=== PATIENT | female | born 1980 | race Caucasian/White ===

== ENCOUNTER 2018-03-25 13:00 | Emergency (ER) | payer OTHER, SELFPAY ==
[2018-03-25 13:08] VITALS: BP 132/71; PULSE 70; RESP 18; TEMP 36.4; O2SAT 100
--- NOTE | 2018-03-25 13:41 | ED.DENTAL ---
HPI - Dental/Oral General Chief complaint: Dental/Oral Stated complaint: lung pain x2 days Time Seen by Provider: 03/25/18 13:38 Source: patient Mode of arrival: ambulatory Limitations: no limitations History of Present Illness HPI Narrative: Patient is a 37-year-old female here for evaluation of multiple complaints. She states that at the end of last week she was scheduled for a lithotripsy. She states that she was told during that procedure that she ?aspirated ?it appears that she had an LMA placed. She states that the procedure was not completed because of this ?aspiration. She states since then she has had a cough. Also has had chest pain with coughing. No fevers. She also has complaints of a tender right submandibular area. She states she does feel like there is a lump there. This has been gradually worsening over the past couple days. Again no fevers. Does have somewhat of a sore throat. No ear pain. She states she has had a ?tumor ?in this area in the past. And she was concerned about this lump. Related Data Home Medications Medication Instructions Recorded Confirmed ranitidine HCl 75 mg PO BID #0 08/26/16 Previous Rx's Medication Instructions Recorded prednisone 20 mg PO QDAY 28 Days #0 tab 08/26/16 Allergies Allergy/AdvReac Type Severity Reaction Status Date / Time Cephalosporins Allergy Severe RASH Verified 03/25/18 14:04 [CEPHALOSPORINS] Penicillins [PENICILLINS] Allergy Severe RASH Verified 03/25/18 14:04 Review of Systems Constitutional Denies fever(s) and Denies headache(s) ENT Ears, Nose, Mouth, and Throat: Denies change in voice, Denies vertigo, Denies dizziness, Denies dry mouth, Denies ear discharge, Denies headache(s), Denies mouth lesions, Denies mouth pain, Reports neck mass, Reports neck pain, Denies sinus pain, Denies sinus pressure, Reports sore throat and Denies throat swelling Cardiovascular Denies chest pain, Denies dyspnea and Denies dyspnea on exertion Respiratory Reports cough, Denies hemoptysis, Denies dyspnea, Denies dyspnea on exertion and Denies wheezing Gastrointestinal Gastrointestinal: Denies abdominal pain, Denies nausea and Denies vomiting Musculoskeletal Denies myalgias, Denies arthralgias and Reports neck pain Integumentary/Breasts Denies lesions and Denies rash Neurologic Denies vertigo, Denies dizziness and Denies headache(s) Hematologic/Lymphatic Comments: Not on anticoagulation Allergic/Immunologic Denies throat swelling and Denies wheezing PFSH Medical History Kidney stones (Acute) Thyroid nodule (Acute) Social History Smoking Status: Never smoker Exam Initial Vital Signs Initial Vital Signs: Vital Signs Temperature 97.6 F 03/25/18 13:08 Pulse Rate 70 03/25/18 13:08 Respiratory Rate 18 03/25/18 13:08 Blood Pressure 132/71 03/25/18 13:08 Pulse Oximetry 100 03/25/18 13:08 Const General: cooperative, healthy appearing, comfortable, well developed, well groomed and No acute distress Orientation: alert and oriented x3 HENMT Head: normal to inspection and normocephalic Ears: TM's normal bilaterally Nose: external nose normal Face and sinus: normal facial exam Mouth: oral mucosae normal, tongue normal and moist mucous membranes Teeth and gingiva: dentition normal Throat: posterior oropharynx normal and uvula midline Neck Thyroid: nontender Lymphatic: lymphadenopathy (Saw Saundra one-sided 1.5-2 cm tender freely movable submandibular lymph node.) Resp Effort & Inspection: normal respiratory effort, no cough, no grunting, not labored, no stridor and not tachypneic Auscultation: clear to auscultation bilaterally Cardio Rate: regular rate Rhythm: regular rhythm Skin Lesions: no lesions Rashes: no rashes Neuro General: alert, awake and oriented x3 Extrem General: normal to inspection and capillary refill normal Psych Appearance: grossly normal and well kempt Course Orders Ordered: ED Orders 03/25/18 13:52 CT soft tissue neck w con Stat 03/25/18 13:53 XR chest 1V Stat 03/25/18 14:20 Urine Culture Stat Urine Microscopic Stat 03/25/18 14:26 Basic Metabolic Panel Stat Complete Blood Count AUTO DIFF Stat Discontinued Medications Sodium Chloride (Normal Saline 0.9%) 1,000 mls @ 1,000 mls/hr IV BOLUS ONE Stop: 03/25/18 14:50 Last Infusion: 03/25/18 15:15 Dose: 0 mls/hr Admin: 03/25/18 14:15 Dose: 1,000 mls/hr Vital Signs - 8 hr 03/25/18 13:08 03/25/18 14:43 03/25/18 16:09 Temperature 97.6 F 98.0 F Pulse Rate 70 61 64 Respiratory Rate 18 16 16 Blood Pressure 132/71 Blood Pressure [Left Arm] 123/81 124/77 Pulse Oximetry [address] [facility] - Dental/Oral Lab Data Attestation: I reviewed the patient's lab results. Result diagrams: 03/25/18 14:26 03/25/18 14:26 Lab Results 03/25/18 03/25/18 03/25/18 Range/Units 14:20 14:26 14:26 WBC 9.3 (4.5-11.0) X10^3/uL RBC 4.68 (4.0-5.2) X10^6/uL Hgb 12.6 (12.0-16.0) g/dL Hct 38.2 (36-46) % MCV 81.5 (80-100) fL MCH 26.9 (26-34) PG MCHC 33.0 (30-36) % RDW 15.2 H (11.6-14.8) % Plt Count 296 (150-400) X10^3/uL Neut % (Auto) 70.4 (50-75) % Lymph % (Auto) 19.3 L (25-40) % O'Brien % (Auto) 5.5 (3-14) % Eos % (Auto) 4.3 H (2-4) % Baso % (Auto) 0.5 (0-2) % Neut # (Auto) 6500 (5312-2404) /uL Sodium 141 (137-145) mmol/L Potassium 3.9 (3.4-5.1) mmol/L Chloride 102 (98-107) mmol/L Carbon Dioxide 28 (22-32) mmol/L BUN 11 (7-17) mg/dL Creatinine 0.70 (0.52-1.04) mg/dL Estimated GFR > 60.0 (>60) mL/min BUN/Creatinine Ratio 15.7 (6-22) Glucose 88 (70-100) mg/dL Calcium 9.3 (8.4-10.2) mg/dL Urine RBC None seen (0-5/HPF) Urine WBC 5-10/hpf H (0-5/HPF) Urine Bacteria None seen (None) Ur Culture Indicated? Specimen cultured Micro UA Comment Not Reportable Point of Care Testing Test Results Negative Urine Dip Bedside Urine Glucose Negative Bedside Urine Bilirubin - Negative Bedside Urine Ketone - Negative Urine Specific [place] 1.005 Bedside Urine Occult Blood ++ Bedside Urine pH 6.5 Bedside Urine Protein - Negative Bedside Urine Urobilinogen - Negative Bedside Urine Nitrite - Negative Bedside Urine Leukocytes - Negative Esterase Imaging Data CT soft tissue neck: Radiologist's impression: PROCEDURE: CT SOFT TISSUE NECK W CON INDICATIONS: Right submandbular swelling with hx of tumor TECHNIQUE: After the administration of intravenous contrast, 3.0 mm axial sections acquired from the sella to the aortic arch. Additional oblique axial 3.0 mm sections acquired through the pharynx. 3 mm thick coronal and sagittal reformats were generated. For radiation dose reduction, the following was used: automated exposure control. COMPARISON: None. FINDINGS: Image quality: Excellent. Lymph nodes: No enlarged lymph nodes seen throughout the neck. Vessels: Visualized vasculature appears patent. Neck spaces: The oropharynx, nasopharynx, and pharynx demonstrate no mucosal lesions. The vocal cords, false vocal cords, pyriform sinuses, epiglottis, vallecula, and tongue base all appear normal. Extramucosal spaces appear unremarkable. Glands: The parotid and submandibular glands appear normal. Thyroid gland is enlarged and heterogeneous in its enhancement bilaterally, with a pattern suggestive of multiple thyroid benign nodules. The adjacent soft tissues show no hyperemia or inflammation. No impingement on the upper tracheal airway is present.. Miscellaneous: Visualized brain and orbits appear normal. Lung apices appear clear. Superficial soft tissues appear normal. Bones: No suspicious bony lesions. Visualized sinuses and mastoids appear unremarkable. IMPRESSION: A moderate degree of enlargement of the thyroid gland is present bilaterally, with thyroid nodules and possible superimposed thyroid cysts. Elective followup thyroid ultrasound is recommended for more accurate assessment. In the area of current clinical concern, right submandibular gland region, no mass or adenopathy is seen. Dictated by: Hugh Santo M.D. on 03/25/2018 at 16:07 Chest x-ray: Radiologist's impression: PROCEDURE: XR CHEST 1V INDICATIONS: cough after aspirating during surgery TECHNIQUE: One view of the chest was acquired. COMPARISON: None. FINDINGS: Surgical changes and devices: None. Lungs and pleura: No pleural effusions or pneumothorax. Lungs are clear except for a mild degree of alveolar infiltration right lung base. Mediastinum: Mediastinal contours appear normal. Heart size is normal. Bones and chest wall: No suspicious bony lesions. Overlying soft tissues appear unremarkable. IMPRESSION: A mildly reduced inspiratory volume is noted, there is mild alveolar infiltration at the right lung base, consistent with mild aspiration. Dictated by: Hugh Santo M.D. on 03/25/2018 at 14:58 Approved by: Hugh Santo M.D. on 03/25/2018 at 14:59 [facility] Narrative Medical decision making narrative: Patient's urine shows no signs of infection. She does have blood in her urine but has known kidney stones. She is not in any respiratory distress. Has a clear lung exam. He is not tachypneic. He is not hypoxic. Chest x-ray is consistent with aspiration however given her other physical exam findings will hold on any antibiotics for now. Patient has known thyroid nodules. I did discuss these findings from the CT scan. Informed her that she needed to follow up with her primary doctor regarding them. CT scan shows no signs of an abscess. Physical exam shows no signs of a dental abscess. Physical exam is consistent with a lymph node on the right submandibular area. I feel like this is the cause of the discomfort on the side of her face. Had a long discussion with the patient regarding her symptoms. Will hold on any antibiotics for now. Will hold on further workup for now. Patient instructed follow up with her primary care doctor. She was given return precautions. She reports understanding and agreement with plan. Discharge Plan Departure Patient Disposition: Home Clinical Impression: Lymphadenopathy, Thyroid nodule Discharge Date/Time: 03/25/18 16:54 Interventions: ED Discharge Assessment Last Done: 03/25/18 16:53 Instructions: DI for Lymphadenopathy Activity Restrictions/Additional Instructions: There were no signs of infection seen on the CT scan today. You do need to follow-up with your primary care doctor regarding the thyroid nodules. Continue taking all of your medication as directed. Return to the emergency department for any new or worsening symptoms Prescriptions: No Action ranitidine HCl 75 MG tablet 75 mg PO BID Qty: 0 RF: 0 prednisone 20 MG tablet 20 mg PO QDAY 28 Days Qty: 0 RF: 0
--- NOTE | 2018-03-25 13:52 | DI.CT.S_ITS ---
PROCEDURE: CT SOFT TISSUE NECK W CON INDICATIONS: Right submandbular swelling with hx of tumor TECHNIQUE: After the administration of intravenous contrast, 3.0 mm axial sections acquired from the sella to the aortic arch. Additional oblique axial 3.0 mm sections acquired through the pharynx. 3 mm thick coronal and sagittal reformats were generated. For radiation dose reduction, the following was used: automated exposure control. COMPARISON: None. FINDINGS: Image quality: Excellent. Lymph nodes: No enlarged lymph nodes seen throughout the neck. Vessels: Visualized vasculature appears patent. Neck spaces: The oropharynx, nasopharynx, and pharynx demonstrate no mucosal lesions. The vocal cords, false vocal cords, pyriform sinuses, epiglottis, vallecula, and tongue base all appear normal. Extramucosal spaces appear unremarkable. Glands: The parotid and submandibular glands appear normal. Thyroid gland is enlarged and heterogeneous in its enhancement bilaterally, with a pattern suggestive of multiple thyroid benign nodules. The adjacent soft tissues show no hyperemia or inflammation. No impingement on the upper tracheal airway is present.. Miscellaneous: Visualized brain and orbits appear normal. Lung apices appear clear. Superficial soft tissues appear normal. Bones: No suspicious bony lesions. Visualized sinuses and mastoids appear unremarkable. IMPRESSION: A moderate degree of enlargement of the thyroid gland is present bilaterally, with thyroid nodules and possible superimposed thyroid cysts. Elective followup thyroid ultrasound is recommended for more accurate assessment. In the area of current clinical concern, right submandibular gland region, no mass or adenopathy is seen. Dictated by: Hugh Santo M.D. on 03/25/2018 at 16:07 Approved by: Hugh Santo M.D. on 03/25/2018 at 16:10
--- NOTE | 2018-03-25 13:53 | DI.RAD.S_ITS ---
PROCEDURE: XR CHEST 1V INDICATIONS: cough after aspirating during surgery TECHNIQUE: One view of the chest was acquired. COMPARISON: None. FINDINGS: Surgical changes and devices: None. Lungs and pleura: No pleural effusions or pneumothorax. Lungs are clear except for a mild degree of alveolar infiltration right lung base. Mediastinum: Mediastinal contours appear normal. Heart size is normal. Bones and chest wall: No suspicious bony lesions. Overlying soft tissues appear unremarkable. IMPRESSION: A mildly reduced inspiratory volume is noted, there is mild alveolar infiltration at the right lung base, consistent with mild aspiration. Dictated by: Hugh Santo M.D. on 03/25/2018 at 14:58 Approved by: Hugh Santo M.D. on 03/25/2018 at 14:59
[2018-03-25] MEDS: SODIUM CHLORIDE 0.9% 1,000 ML 1000 ML IV (14:15)
[2018-03-25 14:29] LABS: Add Manual Diff / Slide Review NO; Basophils Percent Auto 0.5 % (0-2); Eosinophils Percent Auto 4.3 % (2-4); Hematocrit 38.2 % (36-46); Hemoglobin 12.6 g/dL (12.0-16.0); Lymphocytes Percent Auto 19.3 % (25-40); Mean Corpuscular Hemoglobin 26.9 PG (26-34); Mean Corpuscular Volume 81.5 fL (80-100); Monocytes Percent Auto 5.5 % (3-14); Neutrophils Absolute Auto 6500 /uL (1500-7000); Neutrophils Percent Auto 70.4 % (50-75); Platelet Count 296 X10^3/uL (150-400); Red Blood Cell Count 4.68 X10^6/uL (4.0-5.2); Red Cell Distribution Width 15.2 % (11.6-14.8); White Blood Cell Count 9.3 X10^3/uL (4.5-11.0)
--- NOTE | 2018-03-25 14:34 | PC.NURSE ---
pt reports, schedule for litholipsy 2 days ago, while under sedation, pt had episode of vomiting, and de sat. surgery was cancelled, pt here due to chest , hurts to cough and laughing. better at rest. also with right ear,jaw pain.
[2018-03-25 14:37] LABS: Bacteria Urine None Seen; RBC Urine None Seen (0-5/HPF)
[2018-03-25 14:43] VITALS: BP 123/81; PULSE 61; RESP 16; O2SAT 100
[2018-03-25 14:49] LABS: BUN Creatinine Ratio 15.7 (6-22); Blood Urea Nitrogen 11 mg/dL (7-17); Calcium 9.3 mg/dL (8.4-10.2); Carbon Dioxide 28 mmol/L (22-32); Chloride 102 mmol/L (98-107); Estimated Glomerular Filt Rate > 60.0 mL/min (>60); Glucose 88 mg/dL (70-100); HEMOLYSIS < 15 (0-50); Potassium 3.9 mmol/L (3.4-5.1); Sodium 141 mmol/L (137-145)
[2018-03-25 14:57] LABS: Culture Indicated Urine Specimen Cultured; WBC Urine 5-10/HPF (0-5/HPF)
[2018-03-25 16:09] VITALS: BP 124/77; PULSE 64; RESP 16; TEMP 36.7; O2SAT 99
--- NOTE | 2018-03-25 16:13 | PC.NURSE ---
pt reports, right cheek irritation, since CT. better now, no numbness or facial droop noted, no rash, no resp distress noted, breath sound clear through out. dr zuleta made aware.
== END 2018-03-25 16:54 | disposition home or self-care (01) ==
PROVIDERS: Emergency Provider Emergency Medicine; PCP Family Medicine
DX: R59.1 Generalized enlarged lymph nodes (principal); E04.1 Nontoxic single thyroid nodule
CPT/HCPCS: 36591; 70491; 71045; 80048; 81003; 81015; 81025; 85025; 87086; 96360; 99283; 99284; Q9967

== ENCOUNTER → 2018-03-27 16:03 | Outpatient (CLI) | payer OTHER, SELFPAY ==
--- NOTE | 2018-03-27 | DI.CT.S_ITS ---
PROCEDURE: CT KIDNEY URETER BLADDER (KUB) INDICATIONS: KIDNEY STONES TECHNIQUE: Noncontrast 5 mm thick sections acquired from the diaphragms to the symphysis. 5 mm thick coronal and sagittal reformats were then performed. For radiation dose reduction, the following was used: automated exposure control, adjustment of mA and/or kV according to patient size. COMPARISON: Outside Film, CT, CT ABDOMEN PELVIS WITHOUT CONTRAST, 03/07/2018, 6:06. FINDINGS: Image quality: Excellent. Lung bases: Lung bases are clear. Heart size is normal. Urinary system: Both kidneys are normal in size. Right nonobstructing renal calculi are again seen, unchanged from prior study. Mild right perinephric fat stranding and mild prominence of right renal collecting system is again seen. There is prominence of right proximal to MID ureter with interval distal migration of previously noted right-sided ureteral stone measures 7 x 4 mm in size. The stone is now seen in distal right ureter. No left-sided hydronephrosis or left renal stone is seen. Left ureter appears non-dilated throughout its expected course. Bladder wall thickness is normal; no calcified bladder stones. Other solid organs: Liver is normal in size. Gallbladder contains numerous calcified stones. No gallbladder wall thickening or pericholecystic fluid.. Pancreas is normal in contours. Spleen is normal in size. No adrenal nodules. Peritoneum and bowel: Unenhanced bowel loops demonstrate normal wall thickness and caliber. No free fluid or air. Small hiatal hernia is seen. Appendix is visualized and is within normal limits. Nodes and vessels: No retroperitoneal or mesenteric adenopathy by size criteria. Aorta and inferior vena cava are normal in caliber. Abdominal wall: Moderate-sized ventral hernia containing fat is again seen. Pelvis: No free pelvic fluid. No inguinal hernias or adenopathy. Bones: No suspicious bony lesions. No vertebral body compression fractures. Degenerative disc disease at L5-S1 level is again seen. IMPRESSION: 1. There is interval distal migration of previously noted 7 x 4 mm right ureteral stone, the stone is now seen in distal right ureter with mild right hydronephrosis and proximal to mid hydroureter. 2. Nonobstructing right renal calculi. No left-sided renal stone hydronephrosis. 3. Cholelithiasis, no CT evidence of acute cholecystitis. 4. Small hiatal hernia and moderate-sized ventral hernia containing fat only. Dictated by: Irwin Mark M.D. on 03/27/2018 at 16:28 Approved by: Irwin Mark M.D. on 03/27/2018 at 16:33
== END ==
PROVIDERS: PCP Family Medicine; Visit Provider Specialist
DX: N13.2 Hydronephrosis with renal and ureteral calculous obstruction (principal); K80.20 Calculus of gallbladder without cholecystitis without obstruction; K44.9 Diaphragmatic hernia without obstruction or gangrene; K43.9 Ventral hernia without obstruction or gangrene
CPT/HCPCS: 74176

== ENCOUNTER 2018-06-15 10:36 | Emergency (ER) | payer OTHER, SELFPAY ==
[2018-06-15 10:40] VITALS: BP 116/66; PULSE 67; RESP 18; TEMP 36.7; O2SAT 98
--- NOTE | 2018-06-15 11:14 | ED_ITS ---
HPI - Dizziness General Chief Complaint: Dizziness Stated Complaint: vertigo Time Seen by Provider: 06/15/18 10:45 Source: patient Mode of arrival: ambulatory Limitations: no limitations History of Present Illness HPI Narrative: Patient is a 38-year-old female presents with vertigo. She does have a history of vertigo but it has been a long time that she has had it. She woke up yesterday is feeling dizzy every time she moved. She also has a history of migraines she felt like she mi yesterday which was typical for her over left eye. He says the intensity of the dizziness very sometimes feeling extremely dizzy lightheaded with some vomiting. If he remains still it in improved significantly. In the past she has been able to sleep it off however today she continues to have dizziness and did not feel well. She has no unilateral weakness or vision changes or fevers. No chest pain or heart palpitations. MD complaint: dizziness Timing: sudden onset Description: room spinning History of trauma: No Relieving factors: remaining still Exacerbating factors: movement Related Data Home Medications Medication Instructions Recorded Confirmed ranitidine HCl 75 mg PO BID #0 08/26/16 fluticasone propionate 1 spray INTRANASAL DIRECTED 06/15/18 06/15/18 fluticasone propionate [Flovent 1 puff INHALATION DIRECTED 06/15/18 06/15/18 HFA] Previous Rx's Medication Instructions Recorded meclizine 25 mg PO TID PRN #30 tab 06/15/18 ondansetron HCl [Zofran] 4 mg PO Q6-8H PRN #10 tab 06/15/18 Allergies Allergy/AdvReac Type Severity Reaction Status Date / Time Cephalosporins Allergy Severe RASH Verified 06/15/18 10:49 [CEPHALOSPORINS] Penicillins [PENICILLINS] Allergy Severe RASH Verified 06/15/18 10:49 Review of Systems Review of Systems ROS Unobtainable: All systems reviewed & are unremarkable except as noted in HPI and below Constitutional Denies chills, Denies fever(s), Denies lethargy and Denies weakness Eyes Reports photophobia (From migraine) Cardiovascular Denies chest pain, Denies syncope, Denies rapid heart rate, Denies dyspnea and Denies dyspnea on exertion Respiratory Denies cough, Denies dyspnea, Denies dyspnea on exertion and Denies wheezing Gastrointestinal Gastrointestinal: Denies abdominal pain, Denies change in bowel habits, Denies diarrhea, Denies nausea and Denies vomiting Musculoskeletal Denies back pain, Denies muscle weakness, Denies numbness and Denies tingling Integumentary/Breasts Denies pruritus, Denies erythema, Denies rash and Denies wounds Neurologic Denies syncope, Denies numbness, Denies tingling and Denies weakness Allergic/Immunologic Denies wheezing [facility] Medical History Eosinophilic esophagitis (Acute) Migraine (Acute) Kidney stones (Acute) Thyroid nodule (Acute) Social History Smoking Status: Never smoker Social History Smoking Status: Never smoker Exam Initial Vital Signs Initial Vital Signs: Vital Signs Temperature 98.1 F 06/15/18 10:40 Pulse Rate 67 06/15/18 10:40 Respiratory Rate 18 06/15/18 10:40 Blood Pressure 116/66 06/15/18 10:40 Pulse Oximetry 98 06/15/18 10:40 GENERAL: Well-appearing, well-nourished and in no acute distress. HEENT: Head atraumatic,EOMI, pupils reactive, face symmetric, moist mucous membranes CARDIOVASCULAR: Regular rate and rhythm without murmurs, rubs or gallops. RESPIRATORY: Breath sounds equal bilaterally, no wheezes rales or rhonchi. ABDOMEN: Soft, nontender. Normoactive bowel sounds all 4 quadrants. No guarding or rebound. EXTREMITIES: Normal range of motion, no clubbing or edema. Neurovascularly intact NEUROLOGICAL: Alert and oriented x4.Normal gait and speech. Cranial nerves II through XII grossly intact. Good [id number], good [id number], strength equal bilaterally, no dysarthria or aphasia, sensation in tact to soft touch bilaterally, no visual changes, no facial droop SKIN: Warm, dry, no laceration, no petechiae, no rashes or lesions. Scores NIH Stroke Scale Level of Conciousness: Alert, keenly responsive Ask month/age: Answers both questions correctly. Open/close eyes, close hand: Performs both tasks correctly Best gaze horizontal: Normal Visual faust: No visual loss Facial palsy: Normal symetrical movement Left arm drift: No drift for full 10 sec Right arm drift: No drift for full 10 sec Left leg drift: No drift for full 10 sec Right leg drift: No drift for full 10 sec Limb ataxia: Absent Sensory on face/arms/legs: Normal, no sensory loss Best language: No aphasia, normal Dysarthria: Normal Extinction or inattention: No abnormality Total NIH Stroke scale score: 0 Course Orders Ordered: ED Orders 06/15/18 11:22 Basic Metabolic Panel Stat Complete Blood Count AUTO DIFF Stat Discontinued Medications Sodium Chloride (Normal Saline 0.9%) 1,000 mls @ 1,000 mls/hr IV CONT YONG Last Infusion: 06/15/18 12:30 Dose: 0 mls/hr Admin: 06/15/18 11:31 Dose: 1,000 mls/hr Ketorolac Tromethamine (Toradol) 30 mg IV NOW ONE Stop: 06/15/18 11:10 Last Admin: 06/15/18 11:31 Dose: 30 mg Meclizine HCl (Antivert) 50 mg PO NOW ONE Stop: 06/15/18 11:10 Last Admin: 06/15/18 11:32 Dose: 50 mg Ondansetron HCl (Zofran) 4 mg IV NOW ONE Stop: 06/15/18 11:10 Last Admin: 06/15/18 11:32 Dose: 4 mg Vital Signs - 8 hr 06/15/18 10:40 06/15/18 11:37 06/15/18 12:49 Temperature 98.1 F Pulse Rate 67 54 L 67 Respiratory Rate 18 11 L 16 Blood Pressure 116/66 97/57 L Blood Pressure [Right Arm] 114/59 L Pulse Oximetry 98 98 98 MDM - Dizziness Lab Data Attestation: I reviewed the patient's lab results. Result diagrams: 06/15/18 11:22 06/15/18 11:22 Lab Results 06/15/18 06/15/18 Range/Units 11:22 11:22 WBC 9.8 (4.5-11.0) X10^3/uL RBC 4.73 (4.0-5.2) X10^6/uL Hgb 12.7 (12.0-16.0) g/dL Hct 39.1 (36-46) % MCV 82.5 (80-100) fL MCH 26.9 (26-34) PG MCHC 32.6 (30-36) % RDW 15.4 H (11.6-14.8) % Plt Count 316 (150-400) X10^3/uL Neut % (Auto) 84.8 H (50-75) % Lymph % (Auto) 10.7 L (25-40) % [place] % (Auto) 3.4 (3-14) % Eos % (Auto) 0.7 L (2-4) % Baso % (Auto) 0.4 (0-2) % Neut # (Auto) 8300 H (3907-8728) /uL Lymph # (Auto) 1100 (6876-8548) /uL [place] # (Auto) 300 (0-900) /uL Eos # (Auto) 100 (0-450) /uL Baso # (Auto) 0 (0-100) /uL Sodium 139 (137-145) mmol/L Potassium 4.0 (3.4-5.1) mmol/L Chloride 103 (98-107) mmol/L Carbon Dioxide 27 (22-32) mmol/L BUN 7 (7-17) mg/dL Creatinine 0.70 (0.52-1.04) mg/dL Estimated GFR > 60.0 (>60) mL/min BUN/Creatinine Ratio 10.0 (6-22) Glucose 107 H (70-100) mg/dL Calcium 8.9 (8.4-10.2) mg/dL ECG Data Attestation: I personally reviewed and interpreted this ECG as follows: Prior ECG tracings: available for review Interpretation: Normal sinus rhythm rate [address] changes. MDM Narrative Medical decision making narrative: Patient overall is feeling much better able to sit up she is hungry feels ready and able to go home. We discussed warning signs and when to return to the ED. Discharge Plan Departure Patient Disposition: Home Clinical Impression: Benign paroxysmal positional vertigo Qualifiers: Laterality: unspecified laterality Qualified Code(s): H81.10 - Benign paroxysmal vertigo, unspecified ear Discharge Date/Time: 06/15/18 12:49 Interventions: ED Discharge Assessment Last Done: 06/15/18 12:49 Instructions: DI for Vertigo Activity Restrictions/Additional Instructions: *You have been diagnosed with vertigo *What to do: The should spontaneously resolve and improve, unknown how quickly *Continue to take medications as directed Meclizine 25-50 mg every 6 hr if needed for dizziness Zofran 4 mg every 6-8 hours if needed for nausea or vomiting *Follow up with your primary care provider in 2-3 days *Return to ER if you should have worsening disease is weakness vision problems difficulty speaking or any new, worsening or concerning symptoms Prescriptions: New ondansetron HCl [Zofran] 4 mg tablet 4 mg PO Q6-8H PRN (Reason: nausea and vomiting) Qty: 10 RF: 0 meclizine 25 mg tablet 25 mg PO TID PRN (Reason: dizziness) Qty: 30 RF: 0 No Action ranitidine HCl 75 MG tablet 75 mg PO BID Qty: 0 RF: 0 Flovent HFA 220 mcg/actuation HFA aerosol inhaler 1 puff Inhalation DIRECTED RF: 0 fluticasone propionate 50 mcg/actuation spray,suspension 1 spray Intranasal DIRECTED RF: 0 Referrals: Timoteo Black [Primary Care Provider] -
[2018-06-15] MEDS: SODIUM CHLORIDE 0.9% 1,000 ML 1000 ML IV (11:31)
[2018-06-15] MEDS: KETOROLAC 60 MG/2 ML VIAL 30 MG IV (11:31)
[2018-06-15] MEDS: ONDANSETRON 4 MG/2 ML INJ IV (11:32)
[2018-06-15] MEDS: MECLIZINE HCL 12.5 MG TABLET 50 MG PO (11:32)
[2018-06-15 11:37] VITALS: BP 114/59; PULSE 54; RESP 11; O2SAT 98
[2018-06-15 11:40] LABS: Add Manual Diff / Slide Review NO; Basophils Absolute Auto 0 /uL (0-100); Basophils Percent Auto 0.4 % (0-2); Eosinophils Absolute Auto 100 /uL (0-450); Eosinophils Percent Auto 0.7 % (2-4); Hematocrit 39.1 % (36-46); Hemoglobin 12.7 g/dL (12.0-16.0); Lymphocytes Absolute Auto 1100 /uL (1100-4500); Lymphocytes Percent Auto 10.7 % (25-40); Mean Corpuscular HGB Conc 32.6 % (30-36); Mean Corpuscular Hemoglobin 26.9 PG (26-34); Mean Corpuscular Volume 82.5 fL (80-100); Monocytes Absolute Auto 300 /uL (0-900); Monocytes Percent Auto 3.4 % (3-14); Neutrophils Absolute Auto 8300 /uL (1500-7000); Neutrophils Percent Auto 84.8 % (50-75); Platelet Count 316 X10^3/uL (150-400); Red Blood Cell Count 4.73 X10^6/uL (4.0-5.2); Red Cell Distribution Width 15.4 % (11.6-14.8); White Blood Cell Count 9.8 X10^3/uL (4.5-11.0)
[2018-06-15 12:13] LABS: Blood Urea Nitrogen 7 mg/dL (7-17); Calcium 8.9 mg/dL (8.4-10.2); Carbon Dioxide 27 mmol/L (22-32); Chloride 103 mmol/L (98-107); Estimated Glomerular Filt Rate > 60.0 mL/min (>60); Glucose 107 mg/dL (70-100); HEMOLYSIS < 15 (0-50); Sodium 139 mmol/L (137-145)
[2018-06-15 12:49] VITALS: BP 97/57; PULSE 67; RESP 16; O2SAT 98
== END 2018-06-15 12:49 | disposition home or self-care (01) ==
PROVIDERS: Emergency Provider Emergency Medicine; PCP Family Medicine
DX: H81.10 Benign paroxysmal vertigo, unspecified ear (principal)
CPT/HCPCS: 36591; 80048; 85025; 93005; 96361; 96374; 96375; 99283; 99284; J1885; J2405

== ENCOUNTER 2020-11-10 16:42 | Observation (INO) | payer OTHER, SELFPAY ==
[2020-11-10] VITALS (8 sets, daily range): BP systolic 111–143; BP diastolic 64–69; PULSE 62–71; RESP 16–18; TEMP 36.8; O2SAT 96–100; BMI 42.0
--- NOTE | 2020-11-10 17:03 | DI.RAD.S_ITS ---
PROCEDURE: XR ACUTE ABDOMEN SERIES INDICATIONS: abd pain, distention TECHNIQUE: One view chest and two views of the abdomen were acquired. COMPARISON: [facility], CR, XR CHEST 1V, 03/25/2018, 14:42. [facility], CT, CT KIDNEY URETER BLADDER (KUB), 03/27/2018, 16:04. [facility], CR, XR ABDOMEN 1 VIEW, 06/08/2018, 9:12. FINDINGS: Surgical changes and devices: None. Chest: Mild generalized interstitial prominence can be seen. No pneumothorax or pleural effusions are seen. Heart size is normal. No pneumoperitoneum. Abdomen: Bowel gas pattern is normal. There is a nonobstructing stone at the superior pole of the right kidney that measures 7 mm. Visualized solid organ contours appear normal. Bones: No suspicious bony lesions. IMPRESSION: Interstitial prominence is seen throughout. The interstitial prominence is nonspecific, yet may be related to pulmonary edema. Please consider atypical infection, including COVID pneumonia. 7 mm nonobstructing right-sided kidney stone noted. Dictated by: Vince Cueva M.D. on 11/10/2020 at 16:40 Approved by: Vince Cueva M.D. on 11/10/2020 at 16:43
[2020-11-10 17:31] LABS: Add Manual Diff / Slide Review NO; Basophils Absolute Auto 100 /uL (0-100); Basophils Percent Auto 0.7 % (0-2); Eosinophils Absolute Auto 200 /uL (0-450); Hematocrit 37.6 % (36-46); Hemoglobin 12.1 g/dL (12.0-16.0); Lymphocytes Absolute Auto 1200 /uL (1100-4500); Lymphocytes Percent Auto 14.5 % (25-40); Mean Corpuscular HGB Conc 32.1 % (30-36); Mean Corpuscular Hemoglobin 25.2 PG (26-34); Mean Corpuscular Volume 78.6 fL (80-100); Monocytes Absolute Auto 500 /uL (0-900); Monocytes Percent Auto 5.7 % (3-14); Neutrophils Absolute Auto 6400 /uL (1500-7000); Neutrophils Percent Auto 77.1 % (50-75); Platelet Count 270 X10^3/uL (150-400); Red Blood Cell Count 4.79 X10^6/uL (4.0-5.2); White Blood Cell Count 8.3 X10^3/uL (4.5-11.0)
[2020-11-10 17:39] LABS: Alanine Aminotransferase 394 IU/L (<35); Albumin 4.1 g/dL (3.5-5.0); Albumin Globulin Ratio 1.2 (1.0-2.8); Alkaline Phosphatase 187 U/L (38-126); Aspartate Aminotransferase 304 IU/L (14-36); BUN Creatinine Ratio 14.5 (6-22); Bilirubin Total 0.8 mg/dL (0.2-1.3); Blood Urea Nitrogen 11 mg/dL (7-17); Calcium 8.9 mg/dL (8.4-10.2); Carbon Dioxide 27 mmol/L (22-32); Chloride 107 mmol/L (98-107); Estimated Glomerular Filt Rate > 60.0 mL/min (>60); Globulin 3.4 g/dL (1.7-4.1); Glucose 139 mg/dL (70-100); HEMOLYSIS 30 (0-50); Lipase 85 U/L (23-300); Potassium 4.3 mmol/L (3.4-5.1); Sodium 139 mmol/L (137-145); Total Protein 7.5 g/dL (6.3-8.2)
[2020-11-10 18:16] LABS: Creatine Kinase 51 U/L (30-135)
[2020-11-10 18:29] LABS: NT-proBNP (BNP-Adult 18+) 66 pg/mL (<125); Troponin I < 0.012 ng/mL (0.01-0.034)
[2020-11-10 18:30] LABS: COVID19 -Nasal RAPID Negative (Negative)
--- NOTE | 2020-11-10 18:30 | ED_ITS ---
HPI - Abdominal Pain General Chief Complaint: Abdominal Pain Stated Complaint: CHEST PAIN GAS BURPING Time Seen by Provider: 11/10/20 17:22 Source: patient Mode of arrival: Ambulatory History of Present Illness HPI narrative: 40-year-old female nonsmoker with history of eosinophilic esophagitis and gallbladder disease presents with her in the chief complaint of severe epigastric and right upper quadrant pain for the past few days. She states has been gradually worsening and at 1st felt like when her esophagitis flares up but she has made the appropriate dietary changes that would typically help. She is not dizzy nor weak or lightheaded. She denies any chest pain, burning, shortness of breath or cough. She has had no fever or chills. She feels nauseated and has a poor appetite. She denies any change in her bowel habits such as diarrhea, constipation, change in caliber or color. She denies dysuria, frequency or urgency. Related Data Home Medications Medication Instructions Recorded Confirmed escitalopram oxalate 5 mg tablet 20 mg PO DAILY 11/10/20 11/11/20 pantoprazole 40 mg tablet,delayed 40 mg PO DAILY 11/10/20 11/11/20 release fluticasone propionate 50 1 spray INTRANASAL BID 11/11/20 11/11/20 mcg/actuation nasal spray,suspension iron 125 mg-iron 25 mg (asp 125 tab PO DAILY 11/11/20 11/11/20 gly)-folic acid 1 mg-mvit,min#38 tablet Previous Rx's Medication Instructions Recorded oxycodone 5 mg tablet See Rx Instructions .ROUTE 11/12/20 .COMPLEX PRN #14 tab Allergies Allergy/AdvReac Type Severity Reaction Status Date / Time Cephalosporins Allergy Severe RASH Verified 11/11/20 10:19 [CEPHALOSPORINS] Penicillins [PENICILLINS] Allergy Severe RASH Verified 11/11/20 10:19 Review of Systems Review of Systems Narrative: GENERAL: Denies chills, fatigue, malaise, fever, sweats. HEENT: Denies sinus pain, ear pain, sore throat, difficulty swallowing, dizziness. RESPIRATORY: Denies dyspnea, cough, wheezing, hemoptysis, sputum. CARDIOVASCULAR: Denies chest pain, palpitations, orthopnea, edema, GASTROINTESTINAL: See HPI : Denies dysuria, frequency, incontinence, hematuria, urinary retention. MUSCULOSKELETAL: denies weakness, joint pain, or bony pain SKIN: Denies rash, skin lesions, or other NEUROLOGIC: Denies weakness, headache, numbness, change in speech, confusion, seizures, incoordination. PSYCHIATRIC: No concerning psychosocial issues. 12 point review of systems is negative except for those stated above Patient History Medical History Eosinophilic esophagitis Kidney stones Migraine Thyroid nodule Social History household members: spouse Smoking Status: Never smoker Smoking Status: Never smoker alcohol intake frequency: other Substance Use Type: does not use Exam Narrative Exam Narrative: GENERAL: [40] year old patient appears stated age. Well- developed patient, in mild distress. HEAD: Atraumatic. Normocephalic. EYES: Pupils equal round and reactive. Extraocular motions intact. No scleral icterus. No injection or drainage. ENT: Nose without bleeding, purulent drainage. Throat without erythema, tonsillar hypertrophy or exudate. Airway patent. NECK: Trachea midline. Non tender CARDIOVASCULAR: Regular rate and rhythm without murmurs, gallops, or rubs. RESPIRATORY: Clear to auscultation. Breath sounds equal bilaterally. No wheezes, rales, or rhonchi. GASTROINTESTINAL: Abdomen soft, epigastric tenderness to palpation nondistended. EXTREMITIES: No edema or joint tenderness. BACK: Nontender without deformity or crepitance. No flank tenderness. NEURO: AOx3. SKIN: No rash or erythema of visible areas Initial Vital Signs Initial Vital Signs: Vital Signs Temperature 98.3 F 11/10/20 16:44 Pulse Rate 65 11/10/20 16:44 Respiratory Rate 18 11/10/20 16:44 Blood Pressure 111/68 11/10/20 16:44 Pulse Oximetry 97 11/10/20 16:44 Course Orders Ordered: Discontinued Medications Acetaminophen (Acetaminophen 325 Mg Tablet) 975 mg PO NOW ONE Stop: 11/11/20 17:24 Last Admin: 11/11/20 17:55 Dose: 975 mg Documented by: [email or web address] Acetaminophen (Acetaminophen 325 Mg Tablet) 650 mg PO Q6HR PRN PRN Reason: Fever/Mild Pain (1-3) Benzocaine (Benzocaine/Menthol 1 Scott Pkt) 1 each PO PRN PRN PRN Reason: Sore Throat Bupivacaine HCl/Epinephrine Bitart (Bupivacaine 0.25% W/ Epi 30 Ml Vial) 30 ml INJ NOW ONE Stop: 11/11/20 18:49 Last Admin: 11/11/20 18:48 Dose: 30 ml Documented by: HERMAN Cefazolin Sodium (Cefazolin 1 Gm Vial) 2 gm IV NOW ONE Stop: 11/11/20 14:06 Last Admin: 11/11/20 21:31 Dose: Not Given Documented by: NICOLETTE Celecoxib (Celecoxib 200 Mg Capsule) 200 mg PO NOW ONE Stop: 11/11/20 14:06 Last Admin: 11/11/20 14:21 Dose: 200 mg Documented by: JERRI Famotidine (Famotidine 20 Mg/2 Ml Vial) 20 mg IV DAILY YONG Last Admin: 11/12/20 09:01 Dose: 20 mg Documented by: Admin: 11/11/20 18:06 Dose: 20 mg Documented by: [email or web address] Fentanyl (Fentanyl 100 Mcg/2 Ml Inj) 0 mcg IV Q5M PRN PRN Reason: Pain, Moderate (4-6) Gabapentin (Gabapentin 300 Mg Capsule) 300 mg PO NOW ONE Stop: 11/11/20 14:06 Last Admin: 11/11/20 14:21 Dose: 300 mg Documented by: JERRI Hydromorphone HCl (Hydromorphone 0.5 Mg Inj) 0.5 mg IV NOW ONE Stop: 11/10/20 18:45 Last Admin: 11/10/20 18:57 Dose: 0.5 mg Documented by: MARZENA Hydromorphone HCl (Hydromorphone 2 Mg Inj) 0 mg IV Q5M PRN PRN Reason: Pain, Moderate (4-6) Last Admin: 11/11/20 19:57 Dose: 0.5 mg Documented by: MORGAN Hydroxyzine HCl (Hydroxyzine 50 Mg/Ml Inj) 25 mg IM NOW PRN PRN Reason: Pain, Mild (1-3) Last Admin: 11/11/20 19:59 Dose: 25 mg Documented by: MORGAN Lactated Ringer's (Lactated Ringers) 1,000 mls @ 1,000 mls/hr IV BOLUS ONE Stop: 11/10/20 19:43 Last Admin: 11/11/20 13:43 Dose: 100 mls/hr Documented by: Infusion: 11/10/20 20:15 Dose: 0 mls/hr Documented by: Admin: 11/10/20 18:58 Dose: 1,000 mls/hr Documented by: MARZENA Lactated Ringer's (Lactated Ringers) 1,000 mls @ 100 mls/hr IV CONT YONG Last Admin: 11/11/20 21:31 Dose: Not Given Documented by: NICOLETTE Clindamycin Phosphate (Cleocin) 900 mg in 50 mls @ 50 mls/hr IV NOW ONE Stop: 11/11/20 15:24 Last Infusion: 11/11/20 18:30 Dose: 0 mls/hr Documented by: Admin: 11/11/20 18:15 Dose: 50 mls/hr Documented by: DYLAN Lactated Ringer's (Lactated Ringers) 1,000 mls @ 42 mls/hr IV CONT YONG Last Admin: 11/11/20 18:09 Dose: 42 mls/hr Documented by: [email or web address] Lactated Ringer's (Lactated Ringers) 1,000 mls @ 120 mls/hr IV CONT YONG Last Infusion: 11/12/20 08:29 Dose: 0 mls/hr Documented by: Admin: 11/11/20 22:49 Dose: 120 mls/hr Documented by: OPAL Ibuprofen (Ibuprofen 600 Mg Tablet) 600 mg PO Q6HR PRN PRN Reason: Fever/Mild Pain (1-3) Last Admin: 11/12/20 09:02 Dose: 600 mg Documented by: HERMANN Lorazepam (Lorazepam 2 Mg/Ml Inj) 0.25 mg IV NOW PRN PRN Reason: Anxiety Metoclopramide HCl (Metoclopramide 10 Mg/2 Ml Inj) 10 mg IV NOW PRN PRN Reason: Nausea And Vomiting Morphine Sulfate (Morphine 2 Mg/Ml Inj) 2 mg IV Q4HR PRN PRN Reason: Pain, Moderate (4-6) Naloxone HCl (Naloxone 0.4 Mg/Ml Vial) 0.2 mg IV Q2MIN PRN PRN Reason: Opiate Reversal Ondansetron HCl (Ondansetron 4 Mg/2 Ml Inj) 4 mg IV NOW ONE Stop: 11/10/20 18:45 Last Admin: 11/10/20 18:57 Dose: 4 mg Documented by: MARZENA Ondansetron HCl (Ondansetron 4 Mg/2 Ml Inj) 4 mg IV NOW PRN PRN Reason: Nausea And Vomiting Last Admin: 11/11/20 19:58 Dose: 4 mg Documented by: MORGAN Ondansetron HCl (Ondansetron 4 Mg/2 Ml Inj) 4 mg IV Q8HR PRN PRN Reason: Nausea And Vomiting Oxycodone HCl (Oxycodone Ir 5 Mg Tablet) 5 mg PO PACUNOW PRN PRN Reason: Mild or moderate pain Last Admin: 11/11/20 20:00 Dose: 5 mg Documented by: MORGAN Oxycodone HCl (Oxycodone Ir 5 Mg Tablet) 5 mg PO Q6HR PRN PRN Reason: Pain, Moderate (4-6) Pantoprazole Sodium (Pantoprazole 40 Mg Vial) 40 mg IV NOW ONE Stop: 11/10/20 21:44 Last Admin: 11/10/20 21:54 Dose: 40 mg Documented by: BABAR Scopolamine (Scopolamine 1 Patch) 1 patch TOP NOW ONE Stop: 11/11/20 14:06 Last Admin: 11/11/20 14:22 Dose: 1 patch Documented by: JERRI Consultations Consultation #1: No available beds. discussed with automotive production worker surgery (Dr. Ocampo). Keep NPO. No ABX. Pain control. Keep in ED will see patient and evaluate surgical schedule tomorrow Vital Signs Vital signs: Vital Signs - 8 hr 11/10/20 18:30 11/10/20 19:03 11/10/20 19:04 Pulse Rate 67 63 63 Respiratory Rate Blood Pressure 143/69 H Pulse Oximetry 99 98 99 11/10/20 19:30 11/10/20 20:00 11/11/20 01:24 Pulse Rate 62 71 75 Respiratory Rate 16 Blood Pressure 137/64 137/69 Pulse Oximetry 96 98 95 11/11/20 01:26 11/11/20 01:30 Pulse Rate 61 60 Respiratory Rate Blood Pressure 166/86 H Pulse Oximetry 98 97 MDM - Abdominal Pain Lab Data Result diagrams: 11/12/20 05:05 11/12/20 05:05 Labs: Lab Results 11/10/20 11/10/20 11/10/20 Range/Units 17:19 17:19 17:19 WBC 8.3 (4.5-11.0) X10^3/uL RBC 4.79 (4.0-5.2) X10^6/uL Hgb 12.1 (12.0-16.0) g/dL Hct 37.6 (36-46) % MCV 78.6 L (80-100) fL MCH 25.2 L (26-34) PG MCHC 32.1 (30-36) % RDW 18.0 H (11.6-14.8) % Plt Count 270 (150-400) X10^3/uL Neut % (Auto) 77.1 H (50-75) % Lymph % (Auto) 14.5 L (25-40) % [place] % (Auto) 5.7 (3-14) % Eos % (Auto) 2.0 (2-4) % Baso % (Auto) 0.7 (0-2) % Neut # (Auto) 6400 (0680-5005) /uL Lymph # (Auto) 1200 (2859-4681) /uL [place] # (Auto) 500 (0-900) /uL Eos # (Auto) 200 (0-450) /uL Baso # (Auto) 100 (0-100) /uL Sodium 139 (137-145) mmol/L Potassium 4.3 (3.4-5.1) mmol/L Chloride 107 (98-107) mmol/L Carbon Dioxide 27 (22-32) mmol/L BUN 11 (7-17) mg/dL Creatinine 0.76 (0.52-1.04) mg/dL Estimated GFR > 60.0 (>60) mL/min BUN/Creatinine Ratio 14.5 (6-22) Glucose 139 H (70-100) mg/dL Calcium 8.9 (8.4-10.2) mg/dL Total Bilirubin 0.8 (0.2-1.3) mg/dL AST 304 H (14-36) IU/L ALT 394 H (<35) IU/L Alkaline Phosphatase 187 H (38-126) U/L Total Creatine Kinase 51 (30-135) U/L CK-MB (CK-2) TNP CK-MB (CK-2) Rel Index TNP Troponin I < 0.012 (0.01-0.034) ng/mL NT-Pro-B Natriuret Pep 66 (<125) pg/mL Total Protein 7.5 (6.3-8.2) g/dL Albumin 4.1 (3.5-5.0) g/dL Globulin 3.4 (1.7-4.1) g/dL Albumin/Globulin Ratio 1.2 (1.0-2.8) Lipase 85 (23-300) U/L Ur Bilirubin Confirm (Negative) Urine RBC (0-5/HPF) Urine WBC (0-5/HPF) Ur Squamous Epith Cells (0-5/HPF) Urine Bacteria (None) Ur Culture Indicated? SARS-CoV-2 (PCR) (Negative) 11/10/20 11/10/20 11/10/20 Range/Units 17:57 19:03 19:03 WBC (4.5-11.0) X10^3/uL RBC (4.0-5.2) X10^6/uL Hgb (12.0-16.0) g/dL Hct (36-46) % MCV (80-100) fL MCH (26-34) PG MCHC (30-36) % RDW (11.6-14.8) % Plt Count (150-400) X10^3/uL Neut % (Auto) (50-75) % Lymph % (Auto) (25-40) % [place] % (Auto) (3-14) % Eos % (Auto) (2-4) % Baso % (Auto) (0-2) % Neut # (Auto) (3460-1271) /uL Lymph # (Auto) (9246-3571) /uL [place] # (Auto) (0-900) /uL Eos # (Auto) (0-450) /uL Baso # (Auto) (0-100) /uL Sodium (137-145) mmol/L Potassium (3.4-5.1) mmol/L Chloride (98-107) mmol/L Carbon Dioxide (22-32) mmol/L BUN (7-17) mg/dL Creatinine (0.52-1.04) mg/dL Estimated GFR (>60) mL/min BUN/Creatinine Ratio (6-22) Glucose (70-100) mg/dL Calcium (8.4-10.2) mg/dL Total Bilirubin (0.2-1.3) mg/dL AST (14-36) IU/L ALT (<35) IU/L Alkaline Phosphatase (38-126) U/L Total Creatine Kinase (30-135) U/L CK-MB (CK-2) CK-MB (CK-2) Rel Index Troponin I (0.01-0.034) ng/mL NT-Pro-B Natriuret Pep (<125) pg/mL Total Protein (6.3-8.2) g/dL Albumin (3.5-5.0) g/dL Globulin (1.7-4.1) g/dL Albumin/Globulin Ratio (1.0-2.8) Lipase (23-300) U/L Ur Bilirubin Confirm Negative (Negative) Urine RBC 0-1/hpf (0-5/HPF) Urine WBC 1-5/hpf (0-5/HPF) Ur Squamous Epith Cells 0-1 /hpf (0-5/HPF) Urine Bacteria None seen (None) Ur Culture Indicated? Culture not indicate SARS-CoV-2 (PCR) Negative (Negative) 11/10/20 11/11/20 11/11/20 Range/Units 21:24 06:55 06:55 WBC 5.4 (4.5-11.0) X10^3/uL RBC 4.97 (4.0-5.2) X10^6/uL Hgb 12.3 (12.0-16.0) g/dL Hct 39.0 (36-46) % MCV 78.5 L (80-100) fL MCH 24.8 L (26-34) PG MCHC 31.6 (30-36) % RDW 17.8 H (11.6-14.8) % Plt Count 256 (150-400) X10^3/uL Neut % (Auto) 58.9 (50-75) % Lymph % (Auto) 30.0 (25-40) % [place] % (Auto) 7.7 (3-14) % Eos % (Auto) 2.6 (2-4) % Baso % (Auto) 0.8 (0-2) % Neut # (Auto) 3200 (8983-1266) /uL Lymph # (Auto) 1600 (9990-0315) /uL [place] # (Auto) 400 (0-900) /uL Eos # (Auto) 100 (0-450) /uL Baso # (Auto) 0 (0-100) /uL Sodium 140 (137-145) mmol/L Potassium 3.8 (3.4-5.1) mmol/L Chloride 108 H (98-107) mmol/L Carbon Dioxide 28 (22-32) mmol/L BUN 8 (7-17) mg/dL Creatinine 0.70 (0.52-1.04) mg/dL Estimated GFR > 60.0 (>60) mL/min BUN/Creatinine Ratio 11.4 (6-22) Glucose 114 H (70-100) mg/dL Calcium 8.7 (8.4-10.2) mg/dL Total Bilirubin 1.6 H (0.2-1.3) mg/dL AST 698 H (14-36) IU/L ALT 641 H (<35) IU/L Alkaline Phosphatase 205 H (38-126) U/L Total Creatine Kinase (30-135) U/L CK-MB (CK-2) CK-MB (CK-2) Rel Index Troponin I (0.01-0.034) ng/mL NT-Pro-B Natriuret Pep (<125) pg/mL Total Protein 7.1 (6.3-8.2) g/dL Albumin 3.7 (3.5-5.0) g/dL Globulin 3.4 (1.7-4.1) g/dL Albumin/Globulin Ratio 1.1 (1.0-2.8) Lipase (23-300) U/L Ur Bilirubin Confirm (Negative) Urine RBC (0-5/HPF) Urine WBC (0-5/HPF) Ur Squamous Epith Cells (0-5/HPF) Urine Bacteria (None) Ur Culture Indicated? SARS-CoV-2 (PCR) Negative (Negative) Point of care testing: Urine Dip Bedside Urine Glucose Negative Bedside Urine Bilirubin + 1 Bedside Urine Ketone - Negative Urine Specific [place] 1.015 Bedside Urine Occult Blood +/- Bedside Urine pH 7.5 Bedside Urine Protein +/- 15 Bedside Urine Urobilinogen +/- 1mg Bedside Urine Nitrite - Negative Bedside Urine Leukocytes +/- 15 Esterase Imaging Data US - abdomen: Radiologist's Impression: [place] [id number] ReportSigned Patient: Ashanti Finch [facility]#: [id number]: 1980Acct:[id number]/Sex: 40 / FDate of Service: 11/10/20Loc: EDAccession Number: [id number] Procedure: US abdomen limited Ordering Provider: Alejandro Dyson D.O. PROCEDURE: US ABDOMEN LIMITED INDICATIONS: EPIGASTRIC AND RIGHT UPPER QUADRANT PAIN TECHNIQUE: Real-time focused scanning was performed of the abdomen, with image documentation. COMPARISON: None. FINDINGS: Liver is normal in size. Liver is diffusely echogenic. No focal hepatic mass lesions. Multiple mobile gallstones identified. Gallbladder wall is thickened to 3.8-4.5 millimeters. No pericholecystic fluid. No sonographic Villatoro sign. Biliary tree is nondilated. Common hepatic duct measures 4.0 millimeters. Head of the pancreas is sonographically normal. Body and tail of pancreas are obscured and cannot be evaluated. IMPRESSION: Cholelithiasis with gallbladder wall thickening suspicious for early acute cholecystitis. Dictated by: Evie Chan MD, PhD on 11/10/2020 at 20:58 Approved by: Evie Chan MD, PhD on 11/10/2020 at 20:59 Discharge Plan Departure Patient Disposition: Admitted to Surgery Clinical Impression: Cholecystitis Admit Date/Time: 11/11/20 09:45 Admit Provider: Sabina Ocampo
[2020-11-10] MEDS: HYDROMORPHONE 0.5 MG INJ IV (18:57)
[2020-11-10] MEDS: ONDANSETRON 4 MG/2 ML INJ IV (18:57)
[2020-11-10] MEDS: LACTATED RINGERS 1,000 ML 1000 ML IV (18:58)
[2020-11-10 19:30] LABS: Bacteria Urine None Seen
[2020-11-10 19:47] LABS: Ictotest Urine Negative (Negative)
[2020-11-10 19:57] LABS: RBC Urine 0-1/HPF (0-5/HPF); Squamous Epithelial Cell Urine 0-1 /HPF (0-5/HPF)
[2020-11-10 19:58] LABS: WBC Urine 1-5/HPF (0-5/HPF)
[2020-11-10] MEDS: PANTOPRAZOLE 40 MG VIAL IV (21:54)
[2020-11-10 22:16] LABS: COVID19 - ADMIT (NP swab/PCR) Negative (Negative)
[2020-11-11] VITALS (31 sets, daily range): BP systolic 112–167; BP diastolic 67–86; PULSE 53–139; RESP 7–76; TEMP 35.9–37.2; O2SAT 7–98; BMI 42.0
--- NOTE | 2020-11-11 | PATH_ITS ---
[facility] Accession Number: [id number] . 01 Material submitted: . gallbladder - GALLBLADDER . 02 Diagnosis: Gallbladder, Cholecystectomy: Cholelithiasis with cholesterolosis. No evidence of neoplasm. V 11/13/2020 0957 Local . 02 Electronically signed: . Landon Wood MD, PhD, Pathologist NPI- [id number] . 01 Gross description: . The specimen is received in formalin, labeled gallbladder and consists of a 6.5 x 3.0 x 3.0 cm intact gallbladder with a 0.3 cm in diameter cystic duct. The serosa is rodgers-pink to rodgers-green and smooth. Opening reveals green viscous bile with multiple rodgers-green, multifaceted choleliths ranging from 0.3-1.2 cm and measuring 6.0 x 5.5 x 1.2 cm in aggregate. The mucosa is rodgers-green and trabeculated, and the wall thickness measures 0.1 cm. The specimen is entirely submitted, to include the en face cystic duct margin (blue), in cassette A1. ([id number]) /V 11/12/2020 1107 Local . 02 Pathologist provided ICD-10: K80.70 . 02 CPT . 040030 Performed at: 01 [facility] [address], [place], [place] [id number] MD Dano Mcclellan MD Phone: [phone] Performed at: 02 [facility] [address] [place], [place] [id number] MD Domonique Kang MD Phone: [phone]
[2020-11-11 06:59] LABS: Add Manual Diff / Slide Review NO; Basophils Absolute Auto 0 /uL (0-100); Basophils Percent Auto 0.8 % (0-2); Eosinophils Absolute Auto 100 /uL (0-450); Eosinophils Percent Auto 2.6 % (2-4); Hemoglobin 12.3 g/dL (12.0-16.0); Lymphocytes Absolute Auto 1600 /uL (1100-4500); Mean Corpuscular HGB Conc 31.6 % (30-36); Mean Corpuscular Hemoglobin 24.8 PG (26-34); Mean Corpuscular Volume 78.5 fL (80-100); Monocytes Absolute Auto 400 /uL (0-900); Monocytes Percent Auto 7.7 % (3-14); Neutrophils Absolute Auto 3200 /uL (1500-7000); Neutrophils Percent Auto 58.9 % (50-75); Platelet Count 256 X10^3/uL (150-400); Red Blood Cell Count 4.97 X10^6/uL (4.0-5.2); Red Cell Distribution Width 17.8 % (11.6-14.8); White Blood Cell Count 5.4 X10^3/uL (4.5-11.0)
[2020-11-11 07:12] LABS: Alanine Aminotransferase 641 IU/L (<35); Albumin 3.7 g/dL (3.5-5.0); Albumin Globulin Ratio 1.1 (1.0-2.8); Alkaline Phosphatase 205 U/L (38-126); Aspartate Aminotransferase 698 IU/L (14-36); BUN Creatinine Ratio 11.4 (6-22); Bilirubin Total 1.6 mg/dL (0.2-1.3); Blood Urea Nitrogen 8 mg/dL (7-17); Calcium 8.7 mg/dL (8.4-10.2); Carbon Dioxide 28 mmol/L (22-32); Chloride 108 mmol/L (98-107); Estimated Glomerular Filt Rate > 60.0 mL/min (>60); Globulin 3.4 g/dL (1.7-4.1); Glucose 114 mg/dL (70-100); HEMOLYSIS < 15 (0-50); Potassium 3.8 mmol/L (3.4-5.1); Sodium 140 mmol/L (137-145); Total Protein 7.1 g/dL (6.3-8.2)
--- NOTE | 2020-11-11 12:04 | SUR.HOLD ---
pt very pleasant and cooperative . States she is feeling better. We are just awaiting her surgery.
[2020-11-11] MEDS: LACTATED RINGERS 1,000 ML 100 ML IV (13:43)
[2020-11-11] MEDS: GABAPENTIN 300 MG CAPSULE PO (14:21)
[2020-11-11] MEDS: CELECOXIB 200 MG CAPSULE PO (14:21)
[2020-11-11] MEDS: SCOPOLAMINE 1 PATCH TOP (14:22)
--- NOTE | 2020-11-11 14:26 | PM.HP.1 ---
History of Present Illness History of Present Illness Date Patient Seen: 11/11/20 Time Patient Seen: 14:26 Chief complaint: CHEST PAIN GAS BURPING Narrative: Intermitent biliary colic. This episode lasted longer and has been going on for 24 hrs. Workup in ED shows acute cholecystitis. Pain is RUQ, +nausea, +chest pain. NO diarrhea. Pain better with medication. Patient History Medical History Eosinophilic esophagitis Kidney stones Migraine Thyroid nodule Family & Social History Social History: household members spouse Prior Living Arrangements House Safety & Behavioral: Feels Safe in Current Yes Environment Been Physically Hurt or No Threatened By a Person Tobacco & Substance use: Smoking Status Never smoker alcohol intake frequency other Substance Use Type does not use Meds Home Medications and Allergies Home Medications Medication Instructions Recorded Confirmed Type escitalopram oxalate 5 mg tablet 20 mg PO DAILY 11/10/20 11/11/20 History pantoprazole 40 mg tablet,delayed 40 mg PO DAILY 11/10/20 11/11/20 History release fluticasone propionate 50 1 spray INTRANASAL BID 11/11/20 11/11/20 History mcg/actuation nasal spray,suspension iron 125 mg-iron 25 mg (asp 125 tab PO DAILY 11/11/20 11/11/20 History gly)-folic acid 1 mg-mvit,min#38 tablet Allergies Allergy/AdvReac Type Severity Reaction Status Date / Time Cephalosporins Allergy Severe RASH Verified 11/11/20 10:19 [CEPHALOSPORINS] Penicillins [PENICILLINS] Allergy Severe RASH Verified 11/11/20 10:19 Review of Systems Review of Systems ROS: Yes All systems reviewed with the patient and are negative except as otherwise documented Exam Vital Signs (past 8 hours): - 11/11/20 06:30 11/11/20 06:40 11/11/20 07:00 Temperature Pulse Rate 60 64 Respiratory Rate 16 Blood Pressure 167/80 H 167/80 H Pulse Oximetry 96 97 98 11/11/20 07:30 11/11/20 10:11 11/11/20 12:02 Temperature 98.8 F 98.9 F Pulse Rate 60 73 67 Respiratory Rate 18 16 Blood Pressure 134/75 112/70 Pulse Oximetry 96 98 97 11/11/20 13:41 Temperature 98.9 F Pulse Rate 71 Respiratory Rate 18 Blood Pressure 135/81 Pulse Oximetry 96 Oxygen Delivery Method Room Air Const General: cooperative, healthy appearing and comfortable Nutritional Appearance: overweight Orientation: alert and oriented x3 HENMT Head: normocephalic and atraumatic Eyes General: appearance normal, both eyes and all related structures Sclera: sclerae normal Neck Neck: trachea midline Chest Chest: normal inspection of the chest Resp Effort & Inspection: normal respiratory effort and able to speak in complete sentences Cardio Rate: regular rate Rhythm: regular rhythm GI Inspection: normal to inspection Palpation: soft and tender (RUQ tender to palpation) Skin General: no rashes or lesions noted Neuro General: patient alert and patient oriented x3 Speech: speech normal Extrem General: normal to inspection and full ROM Psych Appearance: grossly normal Affect: normal affect Attitude: cooperative Judgment: judgment good Objective Labs Result Diagrams: 11/11/20 06:55 11/11/20 06:55 Labs: Laboratory Results - last 24 hr 11/10/20 11/10/20 11/10/20 17:19 17:19 17:19 WBC 8.3 RBC 4.79 Hgb 12.1 Hct 37.6 MCV 78.6 L MCH 25.2 L MCHC 32.1 RDW 18.0 H Plt Count 270 Neut % (Auto) 77.1 H Lymph % (Auto) 14.5 L [place] % (Auto) 5.7 Eos % (Auto) 2.0 Baso % (Auto) 0.7 Neut # (Auto) 6400 Lymph # (Auto) 1200 [place]ett # (Auto) 500 Eos # (Auto) 200 Baso # (Auto) 100 Sodium 139 Potassium 4.3 Chloride 107 Carbon Dioxide 27 BUN 11 Creatinine 0.76 Estimated GFR > 60.0 BUN/Creatinine Ratio 14.5 Glucose 139 H Calcium 8.9 Total Bilirubin 0.8 AST 304 H ALT 394 H Alkaline Phosphatase 187 H Total Creatine Kinase 51 CK-MB (CK-2) TNP CK-MB (CK-2) Rel Index TNP Troponin I < 0.012 NT-Pro-B Natriuret Pep 66 Total Protein 7.5 Albumin 4.1 Globulin 3.4 Albumin/Globulin Ratio 1.2 Lipase 85 Ur Bilirubin Confirm Urine RBC Urine WBC Ur Squamous Epith Cells Urine Bacteria Ur Culture Indicated? SARS-CoV-2 (PCR) 11/10/20 11/10/20 11/10/20 17:57 19:03 19:03 WBC RBC Hgb Hct MCV MCH MCHC RDW Plt Count Neut % (Auto) Lymph % (Auto) [place] % (Auto) Eos % (Auto) Baso % (Auto) Neut # (Auto) Lymph # (Auto) [place]ett # (Auto) Eos # (Auto) Baso # (Auto) Sodium Potassium Chloride Carbon Dioxide BUN Creatinine Estimated GFR BUN/Creatinine Ratio Glucose Calcium Total Bilirubin AST ALT Alkaline Phosphatase Total Creatine Kinase CK-MB (CK-2) CK-MB (CK-2) Rel Index Troponin I NT-Pro-B Natriuret Pep Total Protein Albumin Globulin Albumin/Globulin Ratio Lipase Ur Bilirubin Confirm Negative Urine RBC 0-1/hpf Urine WBC 1-5/hpf Ur Squamous Epith Cells 0-1 /hpf Urine Bacteria None seen Ur Culture Indicated? Culture not indicate SARS-CoV-2 (PCR) Negative 11/10/20 11/11/20 11/11/20 21:24 06:55 06:55 WBC 5.4 RBC 4.97 Hgb 12.3 Hct 39.0 MCV 78.5 L MCH 24.8 L MCHC 31.6 RDW 17.8 H Plt Count 256 Neut % (Auto) 58.9 Lymph % (Auto) 30.0 Pickett % (Auto) 7.7 Eos % (Auto) 2.6 Baso % (Auto) 0.8 Neut # (Auto) 3200 Lymph # (Auto) 1600 [place] # (Auto) 400 Eos # (Auto) 100 Baso # (Auto) 0 Sodium 140 Potassium 3.8 Chloride 108 H Carbon Dioxide 28 BUN 8 Creatinine 0.70 Estimated GFR > 60.0 BUN/Creatinine Ratio 11.4 Glucose 114 H Calcium 8.7 Total Bilirubin 1.6 H AST 698 H ALT 641 H Alkaline Phosphatase 205 H Total Creatine Kinase CK-MB (CK-2) CK-MB (CK-2) Rel Index Troponin I NT-Pro-B Natriuret Pep Total Protein 7.1 Albumin 3.7 Globulin 3.4 Albumin/Globulin Ratio 1.1 Lipase Ur Bilirubin Confirm Urine RBC Urine WBC Ur Squamous Epith Cells Urine Bacteria Ur Culture Indicated? SARS-CoV-2 (PCR) Negative Assessment & Plan Assessment & Plan narrative: acute cholecystitis, BMI 42. Plan: lapaproscopic cholecystectomy. Risk and benefits discussed with patient to include bleeding, damage to surrounding structures, bile leak and infections. She is willing to proceed. COVID-19 COVID-19 status: Negative Time Spent With Patient Time with patient: 25 - 35 minutes
[2020-11-11] MEDS: ACETAMINOPHEN 325 MG TABLET 975 MG PO (17:55)
[2020-11-11] MEDS: FAMOTIDINE 20 MG/2 ML VIAL IV (18:06)
[2020-11-11] MEDS: LACTATED RINGERS 1,000 ML 42 ML IV (18:09)
[2020-11-11] MEDS: CLINDAMYCIN 900 MG/50 ML PIGGYBACK 50 MG IV (18:15)
--- NOTE | 2020-11-11 18:40 | SUR.OPER ---
Supine on padded OR bed, head on pillow, arms secured on padded arm boards at <90 degrees abduction, legs uncrossed, safety belt at thigh, tape over blanket over lower legs. footboard supporting bottom of feet
[2020-11-11] MEDS: BUPIVACAINE 0.25% W/ EPI 30 ML VIAL INJ (18:48)
--- NOTE | 2020-11-11 19:27 | P.OP_ITS ---
Operative Date/Time/Diagnoses Date of procedure: 11/11/20 Time of procedure: 19:28 Pre-op diagnosis: Acute cholecystitis Post-op diagnosis: same Procedure & Clinicians Procedure: Laparoscopic cholecystectomy Same procedure as scheduled: Yes Indications: Acute cholecystitis Surgeon: Sabina Ocampo Click Yes if Unassisted: Yes Anesthesia Type: General Operative Notes Findings: Acute cholecystitis Closure Type: primary Specimen(s): other (Gallbladder) Estimated Blood Loss (mL): 15 Procedure in detail: Preop diagnosis: Acute cholecystitis Postop diagnosis: Same Operative procedure: Laparoscopic cholecystectomy Surgeon: Aad Ocampo MD Anesthesiologist: Lizzette Butler MD Findings: Acute cholecystitis Procedure: Patient placed in the supine position. Prepped and draped in sterile fashion to expose her abdomen. Supraumbilical port site was placed usin g an open technique and a 12 mm port. Insufflation again all other ports were placed under direct vision including a 10 mm port in the midepigastrium and 2 5 mm ports in the right lateral abdomen. Gallbladder is grasped pushed the left for exposure. Cystic duct was identified clipped once distally, twice proximally. Duct was then transected. Cystic artery was identified clipped once distally and twice proximally prior to transection. Gallbladder is removed from the fossa bed electrocautery. We had excellent hemostasis. There was no spillage of bile or stones. Gallbladder is placed into an Endo-Catch bag and pulled through the umbilical port site intact. I then examined the abdomen for hemostasis prior to removal of all ports. Ports removed and closure began. Closure consisted of interrupted 0 Vicryl for fascial closure of the supraumbilical port site. Skin was closed a running 4-0 Vicryl. Steri-Strips sterile dressings were placed. Patient was awakened, extubated, taken to recovery room in stable condition. Needle, instrument, and sponge counts were correct. Blood loss: 15 mL Specimen: Gallbladder Complications: none Post-operative Condition: stable Disposition: PACU
[2020-11-11] MEDS: HYDROMORPHONE 2 MG INJ IV (19:57)
[2020-11-11] MEDS: ONDANSETRON 4 MG/2 ML INJ IV (19:58)
[2020-11-11] MEDS: hydrOXYzine 50 MG/ML INJ 25 MG IM (19:59)
[2020-11-11] MEDS: OXYCODONE IR 5 MG TABLET PO (20:00)
[2020-11-11] MEDS: LACTATED RINGERS 1,000 ML 120 ML IV (22:49)
[2020-11-12 02:13] VITALS: BP 124/68; PULSE 55; RESP 16; TEMP 36.2; O2SAT 96
[2020-11-12 04:57] VITALS: BP 127/55; PULSE 51; RESP 16; TEMP 36.6; O2SAT 95
[2020-11-12 05:38] VITALS: O2SAT 95
[2020-11-12 05:39] LABS: Add Manual Diff / Slide Review NO; Basophils Absolute Auto 0 /uL (0-100); Basophils Percent Auto 0.3 % (0-2); Eosinophils Absolute Auto 0 /uL (0-450); Hematocrit 39.5 % (36-46); Hemoglobin 12.4 g/dL (12.0-16.0); Lymphocytes Absolute Auto 1000 /uL (1100-4500); Lymphocytes Percent Auto 10.8 % (25-40); Mean Corpuscular HGB Conc 31.4 % (30-36); Mean Corpuscular Hemoglobin 24.7 PG (26-34); Mean Corpuscular Volume 78.5 fL (80-100); Monocytes Absolute Auto 200 /uL (0-900); Monocytes Percent Auto 1.9 % (3-14); Neutrophils Absolute Auto 8000 /uL (1500-7000); Platelet Count 281 X10^3/uL (150-400); Red Blood Cell Count 5.03 X10^6/uL (4.0-5.2); Red Cell Distribution Width 18.3 % (11.6-14.8); White Blood Cell Count 9.2 X10^3/uL (4.5-11.0)
[2020-11-12 06:40] LABS: Alanine Aminotransferase 729 IU/L (<35); Albumin 3.9 g/dL (3.5-5.0); Albumin Globulin Ratio 1.1 (1.0-2.8); Alkaline Phosphatase 201 U/L (38-126); Aspartate Aminotransferase 534 IU/L (14-36); BUN Creatinine Ratio 11.6 (6-22); Bilirubin Total 1.2 mg/dL (0.2-1.3); Blood Urea Nitrogen 8 mg/dL (7-17); Calcium 8.8 mg/dL (8.4-10.2); Carbon Dioxide 26 mmol/L (22-32); Chloride 105 mmol/L (98-107); Estimated Glomerular Filt Rate > 60.0 mL/min (>60); Globulin 3.5 g/dL (1.7-4.1); Glucose 128 mg/dL (70-100); HEMOLYSIS 45 (0-50); Potassium 4.7 mmol/L (3.4-5.1); Sodium 137 mmol/L (137-145); Total Protein 7.4 g/dL (6.3-8.2)
--- NOTE | 2020-11-12 06:58 | PC.NURSE ---
s/p lap Joi, with 5 lap sites with aleven foam CDI with minimal c/o pain managed with Ice. at start of shift pt had been straight cathed for urinary retention of 600 ml and was unable to void, pt has been able to ambulate to bathroom and void, first time for 250 ml, then 500 ml with a PVR of 163. Will recheck at 0700
--- NOTE | 2020-11-12 09:00 | CM.DANOTE ---
DCP: Case received, EMR reviewed and met with patient. , Kong, was also at bedside. Introduced self and role. Was able to obtain information regarding patient's baseline activity status prior to her hospitalization. DCP assessment completed with information currently available. Patient is a 40 year old female who admitted yesterday morning to the care of the hospitalist/surgical team. PCP: Dr. Rubin/[facility]. Payer: [employer]. Patient came to the hospital via private vehicle secondary to having some chest discomfort, as well as nausea, burping. Patient was diagnosed with acute choleysistis, cholelithiasis with gallbladder. Patient had laparoscopic surgery secondary to multiple gallstones. Patient also has history of esophagitis as well. Met with patient and in her room. She is alert and oriented, pleasant. She is independent at her baseline, and they both reside in [place]. 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 Rubin. P: DCP to continue to follow. Patient should be able to go home when she is medically stable, cleared by surgeon. Ashanti Domínguez RN/Director Of Purchasing
[2020-11-12] MEDS: FAMOTIDINE 20 MG/2 ML VIAL IV (09:01)
[2020-11-12] MEDS: IBUPROFEN 600 MG TABLET PO (09:02)
[2020-11-12 10:33] VITALS: BP 116/61; PULSE 56; RESP 15; TEMP 36.6; O2SAT 97
--- NOTE | 2020-11-12 12:29 | PC.NURSE ---
Patient is dressed and ready for D'C home with spouse. Iv removed, went over D'C instructions. Reviewed medications, time of last dose, activity restrictions, showering instructions, follow up appts, hydration and diet, and not to drive while taking narcotics. Patient denies questions. Pt taken down to pov via wheelchair with RN and spouse.
--- NOTE | 2020-11-12 14:17 | P.DS_ITS ---
History of Present Illness History of Present Illness Chief complaint: CHEST PAIN GAS BURPING Narrative: Patient was admitted with signs and symptoms of gallbladder disease. Discharge Providers Provider Date of admission: 11/11/20 09:45 Discharge Date: 11/12/20 Primary care physician: Timoteo Black Discharge provider: Yovani Jeronimo MD Summary Hospital Course Discharge Diagnosis: cholelithiasis with cholecystitis chronic History thyroid nodule chronic History eosinophilic esophagitis chronic History kidney stones not active at this time Status at Discharge Cognitive/behavioral status at discharge: oriented Functional status at discharge: independent ambulation Overall status at discharge: patient is progressing back to baseline Exam Vital Signs (past 8 hours): Oxygen Delivery Method Room Air Oxygen Flow Rate 0 Narrative Exam Narrative: Pleasant woman in no apparent distress. Her dressings are all dry and intact. No cellulitis. Tolerating p.o. well. Objective Labs Result Diagrams: 11/12/20 05:05 11/12/20 05:05 [facility] Medical History Eosinophilic esophagitis Kidney stones Migraine Thyroid nodule Social History household members: spouse Smoking Status: Never smoker Discharge Assessment & Plan Assessment and Plan Assessment: Post removal of her gallbladder doing quite well. Plan of Treatment: Discharged to follow-up in the office Discharge Plan Discharge Plan Patient Disposition: Home Provider Discharge Comment: If you become constipated takes a laxative like milk of magnesia. Discharge orders & Medications Prescriptions: New oxycodone 5 mg tablet See Rx Instructions .ROUTE .COMPLEX PRN (Reason: painful procedure) Qty: 14 RF: 0 Continued pantoprazole 40 mg tablet,delayed release (DR/EC) 40 mg PO DAILY RF: 0 escitalopram oxalate 5 mg tablet 20 mg PO DAILY RF: 0 fluticasone propionate 50 mcg/actuation [place],Suspension 1 spray INTRANASAL BID RF: 0 iron,iron asp gly-FA-mv,min38 125 mg iron-25 mg iron-1 mg Tablet 125 tab PO DAILY RF: 0 Follow up/Referrals: Timoteo Black [Primary Care Provider] - Yovani Jeronimo MD [Physician] - 2 Weeks (Please call and make an appointment to see me in 1-2 weeks. Tell them you had an operation with Dr. Ocampo. If you need to reach a doctor after hours please call our office and listen to the message. He will be instructed how to page the doctor on-call for our practice. Have a pen and paper ready to write the 1 800 number down) Diet/Activity/Treatments Diet: Diet as Tolerated Activity: Do not lift over 10 lb or strain for the next 4 weeks. You may walk. No other exercise recommended. No pool or tub for least 2 weeks. Skin/Wound/Dressing Care Report to your healthcare provider any signs of infection, such as:: chills, fever, increased pain, unusual drainage and unusual redness Dressing: You may remove the Band-Aids in 2 days and shower. If there is tape under the Band-Aids please leave that fall off on its own. Visit Report/Discharge Packet Instructions: DI for Prescription Opioid Use, DI for Laparoscopic Ch olecystectomy Discharge Data Primary Care Provider: Timoteo Black Attending Provider: Sabina Ocampo
== END 2020-11-12 12:15 | disposition home or self-care (01) ==
LOC: ED 11-11 09:45 → AC 11-11 13:04
PROVIDERS: Admitting Provider Surgery; Emergency Provider Emergency Medicine; PCP Family Medicine; Referring Provider Emergency Medicine; Visit Provider Surgery
PROC: 0FT44ZZ Resection of Gallbladder, Percutaneous Endoscopic Approach (ICD-10-PCS; CPT 47562; principal; 2020-11-11 15:30)
DX: K80.00 Calculus of gallbladder with acute cholecystitis without obstruction (principal); Z20.822 Contact with and (suspected) exposure to COVID-19; E66.9 Obesity, unspecified
CPT/HCPCS: 47562; 36415; 74022; 76705; 80053; 81003; 81015; 82550; 83690; 83880; 84484; 85025; 87086; 87635; 93005; 93010; 94762; 96361; 96372; 96374; 96375; 96376; 99220; 99284; C9803; G0378; C9113; J0330; J1100; J1170; J1885; J2250; J2405; J2704; J3010; J3410